=== PATIENT | female | born 1960 | race Caucasian/White ===

== ENCOUNTER → 2016-04-30 | Outpatient (CLI) | payer BC ==
[~2016-04-30] MED LIST: ACET-1138 PO; ACET1TAB84 PO; ASPEC81 PO; BIOF500C2 PO; CLB200 PO; DICL-201 PO; FEXO1TAB49 PO; HYDR-5688 PO; ONDA8TAB6 PO; OXYSR10 PO; RXC5 PO
== END | disposition home or self-care (01) ==
LOC: C.LAB 11:42
PROVIDERS: ATTEND Orthopaedic Surgery Sports Medicine
DX: Z01.818 Encounter for other preprocedural examination (principal)

== ENCOUNTER 2016-06-03 07:53 | Inpatient (IN) | payer BC ==
[2016-04-24 15:04] VITALS: BMI 40.0
--- NOTE | 2016-04-24 15:32 | PAT Medication Instructions ---
Service Date Apr 24, 2016. Current Home Medication List Acetaminophen (Tylenol Arthritis Ext Rel), 650 MG PO Q8H PRN for Pain Bioflavonoid Products (Vitamin C), 1 TAB PO QAM Diclofenac (Voltaren), 75 MG PO BID Fexofenadine Hcl (Anat Allergy), 1 TAB PO QAM Hydrocodone/Acetaminophen 5MG/325MG ([place] 5MG/325MG), 1 TABLET PO QID PRN for Pain Medication Instructions For Your Scheduled Surgery - Check with surgeon for instructions: Diclofenac (Voltaren), 75 MG PO BID - Hold the following medications the morning of surgery: Fexofenadine Hcl (Anat Allergy), 1 TAB PO QAM Bioflavonoid Products (Vitamin C), 1 TAB PO QAM - Take the following medications the morning of surgery with a sip of water: Acetaminophen (Tylenol Arthritis Ext Rel), 650 MG PO Q8H PRN for Pain Hydrocodone/Acetaminophen 5MG/325MG ([place] 5MG/325MG), 1 TABLET PO QID PRN for Pain (okay to take up to 4 hours prior to surgery if needed) - Take the following medications as scheduled the night before surgery: Acetaminophen (Tylenol Arthritis Ext Rel), 650 MG PO Q8H PRN for Pain Hydrocodone/Acetaminophen 5MG/325MG ([place] 5MG/325MG), 1 TABLET PO QID PRN for Pain If you have any questions please call us at [phone] (Kirstin Vicente PA-C) or [phone] or [phone]
--- NOTE | 2016-04-24 16:17 | DIAGNOSTIC IMAGING REPORT ---
CHEST 2 VIEWS ROUTINE HISTORY: Preop. COMPARISON: None. FINDINGS: The lungs are clear. Cardiac silhouette is normal in size. No pleural effusions. No pneumothorax. Cholecystectomy clips. IMPRESSION: No acute process. Electronically signed by: Rahul Do M.D. 04/24/2016 4:16 PM Dictated Date/Time: 04/24/2016 4:15 PM
[2016-04-24 16:19] LABS: BASO % 0.3 %; BASO ABS # 0.03 K/uL (0-0.2); COMPLETE YES; EOS % 1.4 %; HEMATOCRIT 42.3 % (37-47); IG% 0.2 %; LYMPH % 25.6 %; MEAN CELL VOLUME 91.6 fL (80-100); MEAN CORPUSCULAR HGB CONC 33.8 g/dl (32-36); MONO % 5.1 %; NEUT % 67.4 %; PLATELET COUNT 221 K/uL (130-400); RED BLOOD COUNT 4.62 M/uL (4.2-5.4); WHITE BLOOD COUNT 8.58 K/uL (4.8-10.8)
[2016-04-24 16:20] LABS: URINE APPEARANCE CLEAR (CLEAR); URINE BILIRUBIN NEG (NEG); URINE COLOR YELLOW; URINE EPITHELIAL CELL AUTO >30 /lpf (0-5); URINE NITRITE NEG (NEG); URINE SPECIFIC GRAVITY 1.023 (1.000-1.030); UROBILINOGEN NEG (NEG); ZZUR CULT IF INDIC CLEAN CATCH YES
[2016-04-24 16:21] LABS: MANUAL MICROSCOPIC REQUIRED? NO; REVIEW REQ? NO
[2016-04-24 16:27] LABS: PROTHROMBIN TIME (PATIENT) 10.7 SECONDS (9.0-12.0)
[2016-04-24 16:54] LABS: BUN/CREATININE RATIO 25.2 (10-20); CALCIUM 9.6 mg/dl (8.5-10.1); CREATININE 0.87 mg/dl (0.60-1.20); POTASSIUM 4.3 mmol/L (3.5-5.1)
[2016-04-25 06:21] LABS: ESTIMATED AVERAGE GLUCOSE 126 mg/dl; HA1C FLAG Normal (Normal)
--- NOTE | 2016-06-02 20:13 | HISTORY & PHYSICAL EXAMINATION ---
DATE OF ADMISSION: 06/03/2016 CHIEF COMPLAINT: Right knee pain. HISTORY OF PRESENT ILLNESS: This is a 56-year-old female patient of Dr. Nicholas'yanet complaining of chronic right knee pain, longstanding, now progressively getting worse. The patient has been diagnosed with end-stage osteoarthritis per clinical and radiographic exams. The patient has failed conservative treatment including anti-inflammatories, narcotic medications and intraarticular injections as well as the use of brace and cane in the past. The patient has increased pain with weightbearing activities and her pain does interfere with her activities of daily living. PAST MEDICAL HISTORY: Sleep apnea, osteoarthritis, acid reflux. SOCIAL HISTORY: Nonsmoker, nondrinker. PAST SURGICAL HISTORY: Cholecystectomy. FAMILY HISTORY: Noncontributory. REVIEW OF SYSTEMS: The patient complains of chronic right knee pain; otherwise denies any shortness of breath, chest pain, nausea, vomiting or any other joint complaints. MEDICATIONS: Tylenol as needed, Voltaren 75 mg twice daily, vitamin C 125 mg daily, Vicodin as needed, Anat 180 mg daily. ALLERGIES: No known drug allergies. SHE IS ALLERGIC TO POLLEN. PHYSICAL EXAMINATION: GENERAL: Well-developed, well-nourished 56-year-old female in no acute distress. She is alert and oriented x3 and pleasant. HEENT: Normocephalic, atraumatic. Extraocular motions are intact. Pupils are equal and reactive to light. HEART: Regular rate and rhythm. No murmurs are appreciated. LUNGS: Clear. ABDOMEN: Soft, nontender, bowel sounds present. EXTREMITIES: Right knee reveals limited range of motion of 0-125 degrees. She has 4/5 strength. The patient has crepitation with range of motion with a mild effusion. She has medial joint line tenderness. NEUROLOGIC: Neurovascularly, she is intact in her right lower extremity. DIAGNOSES: Right knee end-stage osteoarthritis, sleep apnea, acid reflux and osteoarthritis. PLAN: The patient was advised of her diagnosis. Indications, risks, benefits, and postop course have all been reviewed. The patient wishes to proceed with a right total knee arthroplasty. Necessary consent forms, preoperative testing and clearances will be obtained.
[~2016-06-03] VITALS: Ht 157.5 cm; Wt 99.4 kg
[2016-06-03] VITALS (10 sets, daily range): BP systolic 116–180; BP diastolic 67–90; PULSE 74–96; TEMP 36.6–37; O2SAT 93–100; Ht 157.5 cm; Wt 99.4 kg
[2016-06-03] MEDS: TRANEXAMIC ACID INJ 1,000 MG in SODIUM CHLORIDE 0.9% 100ML 100 ML IV SCH ×2 (06:30→09:54)
[~2016-06-03 07:53] MED LIST changes: -ACET-1138 PO; +ACETAMINOPHEN 500 MG TAB PO SCH; -ASPEC81 PO; +BUPIVACAINE 0.5 % 5 MG/1 ML PF 10ML VIAL ONE; +CEFAZOLIN 2000 MG/60 ML D5W 60 ML IV SCH; -CLB200 PO; +CeleBREX 200 MG CAP PO SCH; +DEXAMETHASONE 4 MG TAB PO SCH; +FAMOTIDINE 20 MG TAB PO SCH; +GABAPENTIN 300 MG CAP PO SCH; +LACTATED RINGER'S 1000ML 1,000 ML IV SCH; +LACTATED RINGER'S 1000ML IV SCH; +LACTATED RINGER'S 500 ML IV SCH; +METOCLOPRAMIDE HCL 10 MG TAB PO SCH; -ONDA8TAB6 PO; -OXYSR10 PO; +ROPIVACAINE 5MG/ML 30 ML 150 MG, BUPIVACAINE/EPINEPHR 0.5% MPF 30 ML, KETOROLAC TROMETH... INFIL SCH; -RXC5 PO
[2016-06-03] MEDS ORDERED: FENTANYL CITRATE INJ 50 MCG/1 ML 2 ML VIAL ONE (08:16)
[2016-06-03] MEDS ORDERED: MIDAZOLAM HCL 1 MG/ML 2ML VIAL ONE ×2 (08:16)
--- NOTE | 2016-06-03 08:51 | History & Physical Bridge Note ---
H&P Re-Evaluation Bridge Note: I have examined the patient, reviewed the History & Physical and in the interval since the performance of the History & Physical I have noted the following changes of clinical significance: No changes noted
[2016-06-03] MEDS ORDERED: ATROPINE SULFATE 0.1 MG/ML 5ML SYR IV PRN (09:15)
[2016-06-03] MEDS ORDERED: EpHEDrine SULFATE INJ 50 MG/ML AMP IV PRN (09:15)
[2016-06-03] MEDS ORDERED: FENTANYL CITRATE INJ 50 MCG/1 ML 2 ML VIAL IV PRN (09:15)
[2016-06-03] MEDS ORDERED: ONDANSETRON INJ 2 MG/ML 2 ML VIAL IV PRN ×2 (09:15→12:00)
[2016-06-03] MEDS ORDERED: ORTHO JOINT ANESTHETIC ONE (09:39)
[2016-06-03] MEDS ORDERED: BACITRACIN 50000 UNIT VIAL ONE (09:39)
[2016-06-03] MEDS ORDERED: POVIDONE-IODINE OP SOLN 30 ML BTL ONE (09:39)
[2016-06-03] MEDS ORDERED: PROPOFOL IV EMULSION 10 MG/ML 20 ML VIAL IV ONE (10:44)
[2016-06-03] MEDS ORDERED: ONDANSETRON INJ 2 MG/ML 2 ML VIAL ONE (10:44)
--- NOTE | 2016-06-03 11:44 | [facility] Operative Report ---
Operative Report Operative Date Jun 03, 2016. Pre-Operative Diagnosis Right Knee Degenerative Joint Disease Post-Operative Diagnosis same Procedure(s) Performed right tka Surgeon Dr. Nicholas Flight Coordinator Surgeon(s) David Myers PA-C Estimated Blood Loss 5 ml Findings grade 4 anteromedial compartment,grade 3 patella trochlear groove Specimens A. Right Knee bone and Tissue Drains 2 hemovac Anesthesia spinal regional block orthomix Complication(s) None Disposition Recovery Room / PACU Indications failed conservative care advanced djd oa I attest to the content of the Intraoperative Record and any orders documented therein. Any exceptions are noted below.
[2016-06-03] MEDS ORDERED: TRAMADOL HCL 50 MG TAB PO PRN (12:00)
[2016-06-03] MEDS ORDERED: MAGNESIUM HYDROXIDE SUSP 30 ML UDC PO PRN (12:00)
[2016-06-03] MEDS ORDERED: SOD PHOSPHATE/SOD BIPHOSPHATE ENEMA 132 ML BTL PR PRN (12:00)
[2016-06-03] MEDS ORDERED: BISACODYL 10 MG SUPP PR PRN (12:00)
[2016-06-03] MEDS ORDERED: MoRPHine SULFATE 2 MG/ML CARP IV PRN (12:00)
[2016-06-03] MEDS ORDERED: ZOLPIDEM TARTRATE 5 MG TAB PO PRN (12:00)
--- NOTE | 2016-06-03 12:36 | DIAGNOSTIC IMAGING REPORT ---
RIGHT KNEE 1 OR 2 VIEWS ROUTINE CLINICAL HISTORY: Right knee degenerative joint disease. COMPARISON: None FINDINGS: Alignment of the total right knee arthroplasty is anatomic. There is no periprosthetic fracture or unexpected radiopaque foreign body. Drains and skin dagoberto are present. IMPRESSION: Expected findings following total right knee arthroplasty. Electronically signed by: Jose Vicente M.D. 06/03/2016 12:34 PM Dictated Date/Time: 06/03/2016 12:34 PM
[2016-06-03] MEDS ORDERED: MoRPHine SULFATE 4 MG/ML 1 ML CARP\\VIAL IV PRN (13:15)
--- NOTE | 2016-06-03 13:34 | Anesthesiology Progress Note ---
Anesthesia Post Op Note Date & Time Jun 03, 2016 at 13:33 Vital Signs Pain Intensity: 0 Vital Signs Past 12 Hours Date Time Temp Pulse Resp B/P Pulse Ox O2 Delivery O2 Flow Rate FiO2 06/03/16 13:05 76 16 129/63 98 Nasal Cannula 2 06/03/16 12:55 76 16 137/64 98 Nasal Cannula 2 06/03/16 12:45 36.5 86 16 143/67 98 Nasal Cannula 2 06/03/16 12:35 77 18 135/71 98 Nasal Cannula 2 06/03/16 12:25 90 18 141/69 99 Nasal Cannula 2 06/03/16 12:15 89 16 130/68 99 Nasal Cannula 2 06/03/16 12:05 91 17 132/68 96 Nasal Cannula 2 06/03/16 11:59 36 103 16 142/59 96 Nasal Cannula 2 06/03/16 08:12 36.9 92 20 180/90 95 Room Air Notes Mental Status: alert / awake / arousable, participated in evaluation Pt Amnestic to Procedure: Yes Nausea / Vomiting: adequately controlled Pain: adequately controlled Airway Patency, RR, SpO2: stable & adequate BP & HR: stable & adequate Hydration State: stable & adequate Neuraxial Anesthesia: was administered, sensory block is resolving Anesthetic Complications: no major complications apparent
[2016-06-03] MEDS: D5W AND 1/2NSS + 20MEQ KCL 1,000 ML IV SCH ×2 (14:02→23:47)
--- NOTE | 2016-06-03 14:43 | Medical Consult ---
Consultation Date of Consultation: Jun 03, 2016. Attending Physician: Bart Nicholas M.D. Reason for Consultation: Medical management History of Present Illness 56 y/o F s/p R TKA earlier today. She is currently eating lunch and having no issues. No pain related to her surgery. No chest pain or SOB. Pt denies fever , abd pain, n/v/c/d, LE pain or swelling, urinary urgency or frequency. ROS as noted above, otherwise neg. Pt states she was never dx with sleep apnea, but does snore and wake frequently. Pt states she has not been able to walk much for several months due to her knee pain. Past Medical/Surgical History OA GERD Social History Smoking Status: Never Smoker Alcohol Use: none Drug Use: none Allergies Coded Allergies: No Known Allergies (Verified , 06/03/16) Current Inpatient Medications Current Inpatient Medications Medications (Trade) Dose Ordered Sig/Kendrick Route Start Time Stop Time Status Last Admin Dose Admin Cefazolin Sodium (Ancef 2000mg/60 ml D5W) 60 ml @ 100 mls/hr PREOP IV 06/03/16 06:00 06/03/16 18:00 06/03/16 10:10 100 MLS/HR Acetaminophen (Tylenol Tab) 1,000 mg PREOP PO 06/03/16 06:00 06/03/16 18:00 06/03/16 08:49 1,000 MG Celecoxib (CeleBREX CAP) 200 mg PREOP PO 06/03/16 06:00 06/03/16 18:00 06/03/16 08:49 200 MG Dexamethasone (Decadron Tab) 8 mg PREOP PO 06/03/16 06:00 06/03/16 18:00 06/03/16 08:50 8 MG Famotidine (Pepcid Tab) 20 mg PREOP PO 06/03/16 06:00 06/03/16 18:00 06/03/16 08:49 20 MG Gabapentin (Neurontin Cap) 600 mg PREOP PO 06/03/16 06:00 06/03/16 18:00 06/03/16 08:49 600 MG Metoclopramide HCl 10 mg 10 mg PREOP PO 06/03/16 06:00 06/03/16 18:00 06/03/16 08:50 10 MG Tranexamic Acid 1000 mg/Sodium Chloride 110 ml @ 660 mls/hr TODAY@06,0630 IV 06/03/16 06:00 06/03/16 18:00 06/03/16 09:54 660 MLS/HR Ropivacaine/ Bupivacaine HCl/ Epinephrine Bitart/Ketorolac Tromethamine/ Dexamethasone Sodium Phosphate/ Ketamine HCl/ Clonidine/Sodium Chloride/Empty Bag (Naropin Inj 5MG/ Ml 30ML/ Sensorcaine/ Epinephrine 0.5% Mpf 1:200,000/ Toradol Inj/ Decadron Inj/ Ketalar Steri-Vial I... 93.2 ml @ 0 mls/hr TODAY@06 INFIL 06/03/16 06:00 06/03/16 18:00 Fexofenadine HCl 180 mg 180 mg QAM PO 06/04/16 09:00 07/04/16 08:59 Potassium Chloride/Dextrose/ Sod Cl 1,000 ml @ 100 mls/hr Q10H IV 06/03/16 14:00 06/04/16 11:59 06/03/16 14:02 100 MLS/HR Cefazolin Sodium/ Dextrose (Ancef Iv/D5 50ml) 60 ml @ 100 mls/hr Q8H IV 06/03/16 18:00 06/04/16 02:35 Celecoxib (CeleBREX CAP) 200 mg BID PO 06/03/16 21:00 07/03/16 20:59 Oxycodone HCl (Roxicodone Immediate Rel Tab) 1 TABLET FOR PAIN RATING... Q4H PRN PO 06/03/16 12:00 06/17/16 11:59 Oxycodone HCl (Oxycontin Tab) 10 mg Q12 PO 06/03/16 21:00 06/17/16 20:59 Morphine Sulfate (MoRPHine SULFATE INJ) 2 mg Q2H PRN IV 06/03/16 12:00 06/17/16 11:59 Acetaminophen (Tylenol Tab) 1,000 mg Q8H PO 06/03/16 14:00 07/03/16 13:59 Magnesium Hydroxide (Milk Of Magnesia Susp) 30 ml Q6H PRN PO 06/03/16 12:00 07/03/16 11:59 Bisacodyl (Dulcolax Supp) 10 mg DAILY PRN NE 06/03/16 12:00 07/03/16 11:59 Sodium Biphosphate/ Sodium Phosphate (Fleet Enema) 132 ml DAILY PRN NE 06/03/16 12:00 07/03/16 11:59 Docusate Sodium (coLACE CAP) 100 mg BID PO 06/03/16 21:00 07/03/16 20:59 Diphenhydramine HCl (Benadryl Cap) 25 mg Q8H PRN PO 06/03/16 12:00 07/03/16 11:59 Zolpidem Tartrate (Ambien Tab) 5 mg HSZ PRN PO 06/03/16 12:00 07/03/16 11:59 Multivitamins (Multivitamin Tab) 1 tab QAM PO 06/04/16 09:00 07/04/16 08:59 Ondansetron HCl (Zofran Inj) 4 mg Q6H PRN IV 06/03/16 12:00 07/03/16 11:59 Pantoprazole Sodium (Protonix Tab) 40 mg QAM PO 06/04/16 09:00 07/04/16 08:59 Tramadol HCl (Ultram Tab) 1 tablet for pain rating... Q4H PRN PO 06/03/16 12:00 07/03/16 11:59 Aspirin (Ecotrin Tab) 81 mg BID PO 06/03/16 21:00 07/03/16 20:59 Morphine Sulfate (MoRPHine SULFATE INJ) 4 mg Q2H PRN IV 06/03/16 13:15 06/17/16 13:14 Physical Exam Date Time Temp Pulse Resp B/P Pulse Ox O2 Delivery O2 Flow Rate FiO2 06/03/16 14:15 74 16 133/89 100 Nasal Cannula 2.0 06/03/16 14:13 36.7 81 16 127/78 98 Nasal Cannula 2.0 06/03/16 13:50 87 16 122/72 98 Nasal Cannula 2.0 06/03/16 13:42 99 Nasal Cannula 2.0 06/03/16 13:41 99 Nasal Cannula 2.0 06/03/16 13:38 36.6 86 16 140/85 99 Nasal Cannula 2.0 06/03/16 13:05 76 16 129/63 98 Nasal Cannula 2 06/03/16 12:55 76 16 137/64 98 Nasal Cannula 2 06/03/16 12:45 36.5 86 16 143/67 98 Nasal Cannula 2 06/03/16 12:35 77 18 135/71 98 Nasal Cannula 2 06/03/16 12:25 90 18 141/69 99 Nasal Cannula 2 06/03/16 12:15 89 16 130/68 99 Nasal Cannula 2 06/03/16 12:05 91 17 132/68 96 Nasal Cannula 2 06/03/16 11:59 36 103 16 142/59 96 Nasal Cannula 2 06/03/16 08:12 36.9 92 20 180/90 95 Room Air General Appearance: WD/WN, no apparent distress Neck: supple Respiratory/Chest: lungs clear, normal breath sounds, no respiratory distress Cardiovascular: regular rate, rhythm, no edema Abdomen/GI: non tender, soft Extremities/Musculoskelatal: no calf tenderness, no pedal edema Neurologic/Psych: alert, normal mood/affect Skin: normal color, warm/dry Assessment & Plan 56 y/o F s/p R TKA on 06/03 R TKA: as per ortho GERD: continue home meds Elevated A1c 6.0: pt states she has not been informed of this prior She is uncertain if her pre-op labs were fasting, but was not aware that they needed to be BS on pre-op labs was 126, which is more concerning if this was fasting Advised that she should discuss further with PCP, start working on diet now and add in exercise as her post-op status allows ??DEIRDRE: No formal dx, but listed in H&P, + for snoring and frequent awakening Will need formal sleep study as outpt
[2016-06-03] MEDS: ACETAMINOPHEN 500 MG TAB PO SCH ×2 (15:21→21:42)
--- NOTE | 2016-06-03 16:57 | OPERATIVE REPORT ---
DATE OF OPERATION: 06/03/2016 INDICATION FOR PROCEDURE: The patient is a 56-year-old female with progressive pain and disability with regard to her right knee. She had known osteoarthritis. She had extensive management including steroid injection, viscosupplementation injections. She has had progressive osteoarthritis to the point now where x-rays demonstrate that she is [id number] in the medial compartment on flexion views and she has moderate patellofemoral DJD. PREOPERATIVE DIAGNOSIS: End-stage osteoarthritis, right knee. POSTOPERATIVE DIAGNOSIS: Same. PROCEDURE: Right total knee arthroplasty. SURGEON: Dr. Nicholas. TESTER/LIFT TRUCKER: ASPEN Irwin ANESTHESIA: Spinal, IV sedation, regional block and ortho mix. OPERATIVE PROCEDURE: The patient taken to the operating room, anesthetized under spinal anesthetic. She had a block placed. She has had a pneumatic tourniquet placed about her right upper thigh. Her right lower extremity was prepped and draped in a sterile fashion. Exam demonstrates she had 0 through 125 degrees range of motion. She had no instability. She had patellofemoral crepitation. She had moderate obese knee. The right lower extremity was prepped and draped with ChloraPrep. The leg was elevated, exsanguinated with an Esmarch bandage and the pneumatic tourniquet was raised to 350 mmHg because of her obesity. The anterior incision was made longitudinally across the right knee, skin was incised sharply. Subcutaneous flaps were elevated. Incision was made through the medial retinaculum and extended up in the mid third of the quadriceps tendon and extended down to the medial tibial tubercle. Intraarticular findings demonstrated she was [id number] in the medial compartment, there was more anteromedial arthritis where she has had grade 4 changes on the tibial plateau and femur. She also had grade 3 large lesion in the central trochlear groove and on the patella was grade 3 wear as well. She has tricompartmental osteophytes. To expose the knee, I excised the infrapatellar fat pad, the fat pad over the anterior femur, released lateral synovial bands and excised some of the inflamed synovium tissue. The menisci were resected, crucial ligaments were resected. I used the Cisneros and Nephew Journey II total knee arthroplasty system using [place] MRI templating. Femur sized for a 5 and tibia for a 3. The custom cutting block was placed on the femur. Distal femoral cut was made. Then the 5-1 cutting block for a 5 femur was placed. The anterior, posterior and chamfer cuts were made. The knee was extended. A subperiosteal peel lateral release was performed around the patella. The patella width was measured and width was reproduced using a freehand cut technique and the drill holes were made for the patellar component. The excess lateral facet was beveled off to prevent any impingement. The tibia was then exposed and subluxed and the custom tibial cutting block was placed and pinned in position and the proximal tibial cut was made. Lamina director marketing communications was used to help balance the ligaments. We did a medial and posteromedial releases. We went ahead and placed the [address], externally rotated in line with the tibial tubercle, pinned it in position. The punch for the stem was used. Then, the 5 femoral trial was inserted, centered and the notch cutting devices were used. A collet was placed and assessed the ligamentous balance again. She is low unbalanced, too much tightness posterior medial, so I put a laminar director marketing communications in between the components and did a minor pie crusting of the MCL till we had a better ligamentous balance and then placed an 11 poly insert and the ligaments were completely balanced in full range of motion and the patella had just some very slight lateral translation, so I did a minor lateral release of the upper lateral retinaculum to the mid retinaculum area releasing some of the IT band fibers and then the patella tracked completely centrally after that. The trials were removed. The anesthetic Orthomix cocktail was injected per protocol. The knee was copiously irrigated with pulsatile lavage antibiotic solution and bacitracin. Final components were cemented with Simplex cement. Final components were the 5 Oxinium posterior stabilized right Cisneros \T\ Nephew Journey femur component and the size 3 tibial component primary base plate. The 11 mm posterior stabilized poly insert and the 32 mm patella. While the cement cured, we did the Betadine soak per protocol. The knee joint was then again copiously irrigated with pulsatile lavage antibiotic solution and bacitracin. Two drains were brought out laterally. Quadriceps tendon and medial retinaculum were closed with interrupted [id number] #1 Vicryl sutures. The knee was taken through full range of motion and repair was secure. The subcutaneous tissues were injected with more Orthomix. The subcutaneous tissue was closed with interrupted 2-0 Vicryl, skin closed with dagoberto. Sterile dressing was applied and the patient tolerated the procedure well. ASPEN Irwin was my assistant professor of psychology. He functioned as assistant professor of psychology for the entire procedure. He assisted in patient positioning, assisted in soft tissue retraction, instrument management during the reconstruction and performed the fascial, subcutaneous and skin closure. He will participate in postoperative care of the patient. I attest to the content of the Intraoperative Record and any orders documented therein. Any exceptio ns are noted below.
[2016-06-03] MEDS: OXYCODONE HCL IR 5 MG TAB (IMMEDIATE RELEASE) PO PRN (17:21)
[2016-06-03] MEDS: CEFAZOLIN IV 2,000 MG in DEXTROSE 5% 50ML 50 ML IV SCH (17:24)
[2016-06-03] MEDS: OXYCODONE HCL 10 MG TABCR (OXYCONTIN) PO SCH (21:40)
[2016-06-03] MEDS: ASPIRIN 81 MG ECTAB PO SCH (21:41)
[2016-06-03] MEDS: DOCUSATE SODIUM 100 MG CAP PO SCH (21:41)
[2016-06-03] MEDS: CeleBREX 200 MG CAP PO SCH (21:42)
[2016-06-04] MEDS: CEFAZOLIN IV 2,000 MG in DEXTROSE 5% 50ML 50 ML IV SCH (01:33)
[2016-06-04 03:13] VITALS: BP 105/65; PULSE 68; TEMP 36.6; O2SAT 98
[2016-06-04] MEDS: ACETAMINOPHEN 500 MG TAB PO SCH ×3 (05:51→20:37)
[2016-06-04 06:19] LABS: HEMATOCRIT 37.2 % (37-47); MEAN CELL VOLUME 92.1 fL (80-100); MEAN CORPUSCULAR HEMOGLOBIN 30.7 pg (25-34); MEAN CORPUSCULAR HGB CONC 33.3 g/dl (32-36); MEAN PLATELET VOLUME 11.7 fL (7.4-10.4); PLATELET COUNT 272 K/uL (130-400); RED BLOOD COUNT 4.04 M/uL (4.2-5.4)
[2016-06-04 06:47] VITALS: BP 117/65; PULSE 70; TEMP 36.6; O2SAT 97
[2016-06-04 06:53] LABS: CREATININE 1.1 mg/dl (0.60-1.20); POTASSIUM 4.3 mmol/L (3.5-5.1)
--- NOTE | 2016-06-04 08:15 | Orthopedic Progress Note ---
Orthopedic Progress Note Date of Service Jun 04, 2016. Subjective Post OP Day: 1 Reports: feeling well, pain controlled w PO medications, Denies: SOB, calf pain , chest pain, complaints, light headedness, nausea / vomiting Objective calves soft nontender, N/V intact, capillary refill less than 2 sec., dressing C /D/I, A&O x3, toes mobile Date Time Temp Pulse Resp B/P Pulse Ox O2 Delivery O2 Flow Rate FiO2 06/04/16 06:47 36.6 70 16 117/65 97 Room Air 06/04/16 03:13 36.6 68 16 105/65 98 Room Air 06/03/16 22:54 37.0 83 16 116/67 96 Room Air 06/03/16 20:05 Room Air 06/03/16 19:19 36.7 95 17 133/73 93 Room Air 06/03/16 16:30 36.8 96 17 146/85 96 Room Air 06/03/16 15:22 76 14 124/74 97 Nasal Cannula 2.0 06/03/16 14:51 Room Air 06/03/16 14:15 74 16 133/89 100 Nasal Cannula 2.0 06/03/16 14:13 36.7 81 16 127/78 98 Nasal Cannula 2.0 06/03/16 13:50 87 16 122/72 98 Nasal Cannula 2.0 06/03/16 13:42 99 Nasal Cannula 2.0 06/03/16 13:41 99 Nasal Cannula 2.0 06/03/16 13:38 36.6 86 16 140/85 99 Nasal Cannula 2.0 06/03/16 13:05 76 16 129/63 98 Nasal Cannula 2 06/03/16 12:55 76 16 137/64 98 Nasal Cannula 2 06/03/16 12:45 36.5 86 16 143/67 98 Nasal Cannula 2 06/03/16 12:35 77 18 135/71 98 Nasal Cannula 2 06/03/16 12:25 90 18 141/69 99 Nasal Cannula 2 06/03/16 12:15 89 16 130/68 99 Nasal Cannula 2 06/03/16 12:05 91 17 132/68 96 Nasal Cannula 2 06/03/16 11:59 36 103 16 142/59 96 Nasal Cannula 2 Laboratory Results 24 Hours: Test 06/04/16 05:30 Hematocrit 37.2 % Hemoglobin 12.4 g/dL Assessment & Plan Assessment: POD #1, Right TKA Plan: PT/ OT DVT proph- ASA D/C planning- Home w OPPT Appreciate medicine input Inhouse Planning Pain Management: Celebrex, Oxycontin, Morphine, PO Tylenol, Oxy IR DVT Prophylaxis: TEDs, SCDs, ASA Discharge Planning Discharge Planning: home with oppt Pain Management: Celebrex, Oxycontin, PO Tylenol, Oxy IR DVT Prophylaxis: TEDs, ASA Therapy: Physical Therapy, Occupational Therapy
[2016-06-04] MEDS: FEXOFENADINE HCL 180 MG TAB PO SCH (08:35)
[2016-06-04] MEDS: CeleBREX 200 MG CAP PO SCH ×2 (08:36→20:36)
[2016-06-04] MEDS: ASPIRIN 81 MG ECTAB PO SCH ×2 (08:36→20:36)
[2016-06-04] MEDS: DOCUSATE SODIUM 100 MG CAP PO SCH ×2 (08:36→20:36)
[2016-06-04] MEDS: PANTOprazole SOD 40 MG TAB PO SCH (08:37)
[2016-06-04] MEDS: OXYCODONE HCL 10 MG TABCR (OXYCONTIN) PO SCH ×2 (08:37→20:35)
[2016-06-04] MEDS: MULTIVITAMIN TAB PO SCH (08:37)
[2016-06-04] MEDS: D5W AND 1/2NSS + 20MEQ KCL 1,000 ML IV SCH (08:39)
[2016-06-04] MEDS ORDERED: BIOFLAVONOID PRODUCTS PO SCH (09:00)
[2016-06-04 10:30] VITALS: BP 123/71
[2016-06-04 11:04] VITALS: BP 130/64; PULSE 75; TEMP 36.6; O2SAT 97
[2016-06-04] MEDS: OXYCODONE HCL IR 5 MG TAB (IMMEDIATE RELEASE) PO PRN ×2 (13:53→23:55)
[2016-06-04 14:54] VITALS: BP 130/70; PULSE 66; TEMP 36.6; O2SAT 99
[2016-06-05 00:02] VITALS: BP 151/76; PULSE 67; TEMP 36.6; O2SAT 96
[2016-06-05] MEDS: ACETAMINOPHEN 500 MG TAB PO SCH ×3 (05:51→20:45)
[2016-06-05] MEDS: OXYCODONE HCL IR 5 MG TAB (IMMEDIATE RELEASE) PO PRN (05:51)
[2016-06-05 06:03] VITALS: BP 130/83; PULSE 63; TEMP 36.8; O2SAT 97
[2016-06-05 06:30] LABS: MEAN CORPUSCULAR HEMOGLOBIN 30.5 pg (25-34); MEAN CORPUSCULAR HGB CONC 32.5 g/dl (32-36); MEAN PLATELET VOLUME 12.1 fL (7.4-10.4); PLATELET COUNT 225 K/uL (130-400); RED BLOOD COUNT 3.83 M/uL (4.2-5.4); WHITE BLOOD COUNT 12.12 K/uL (4.8-10.8)
[2016-06-05 07:16] LABS: BUN/CREATININE RATIO 28.3 (10-20); CALCIUM 8.7 mg/dl (8.5-10.1); CREATININE 0.94 mg/dl (0.60-1.20); POTASSIUM 4.3 mmol/L (3.5-5.1)
[2016-06-05] MEDS ORDERED: KETOROLAC TROMETHAMINE 30 MG/ML VIAL IV PRN (07:30)
[2016-06-05] MEDS ORDERED: KETOROLAC TROMETHAMINE 30 MG/ML VIAL ONE (07:33)
[2016-06-05] MEDS: ASPIRIN 81 MG ECTAB PO SCH ×2 (07:34→20:44)
[2016-06-05] MEDS: OXYCODONE HCL 10 MG TABCR (OXYCONTIN) PO SCH ×2 (07:34→20:44)
[2016-06-05] MEDS: DOCUSATE SODIUM 100 MG CAP PO SCH ×2 (07:34→20:44)
[2016-06-05] MEDS: FEXOFENADINE HCL 180 MG TAB PO SCH (07:34)
[2016-06-05] MEDS: PANTOprazole SOD 40 MG TAB PO SCH (07:35)
[2016-06-05] MEDS: MULTIVITAMIN TAB PO SCH (07:35)
--- NOTE | 2016-06-05 08:09 | Orthopedic Progress Note ---
Orthopedic Progress Note Date of Service Jun 05, 2016. Subjective Post OP Day: 2 Denies: SOB, calf pain, chest pain, light headedness, nausea / vomiting Additional Notes: Main issue is pain, toradol added Little PT Objective calves soft nontender, N/V intact, capillary refill less than 2 sec., dressing C /D/I, A&O x3, toes mobile silverlon in tact Date Time Temp Pulse Resp B/P Pulse Ox O2 Delivery O2 Flow Rate FiO2 06/05/16 06:03 36.8 63 16 130/83 97 Room Air 06/05/16 00:02 36.6 67 16 151/76 96 Room Air 06/04/16 23:55 Room Air 06/04/16 15:15 Room Air 06/04/16 14:54 36.6 66 17 130/70 99 Room Air 06/04/16 11:04 36.6 75 19 130/64 97 Room Air 06/04/16 08:23 Room Air Laboratory Results 24 Hours: Test 06/05/16 05:51 Hematocrit 36.0 % Hemoglobin 11.7 g/dL Assessment & Plan Assessment: POD #2, Right TKA Plan: PT/ OT DVT proph- ASA D/C planning- Home w OPPT this weekend Appreciate medicine input Inhouse Planning Pain Management: Celebrex, Oxycontin, Morphine, PO Tylenol, Oxy IR DVT Prophylaxis: TEDs, SCDs, ASA Discharge Planning Discharge Planning: home with oppt Pain Management: Celebrex, Oxycontin, PO Tylenol, Oxy IR DVT Prophylaxis: TEDs, ASA Therapy: Physical Therapy, Occupational Therapy
[2016-06-05] MEDS: CeleBREX 200 MG CAP PO SCH ×2 (08:52→20:44)
[2016-06-05 09:52] VITALS: BP 144/97; PULSE 73; O2SAT 98
[2016-06-05 15:36] VITALS: BP 143/81; PULSE 70; TEMP 36.7; O2SAT 97
[2016-06-06 00:14] VITALS: BP 124/74; PULSE 71; TEMP 36.7; O2SAT 97
[2016-06-06] MEDS: OXYCODONE HCL IR 5 MG TAB (IMMEDIATE RELEASE) PO PRN ×2 (04:35→11:10)
[2016-06-06] MEDS: ACETAMINOPHEN 500 MG TAB PO SCH (04:36)
[2016-06-06 07:32] VITALS: BP 150/85; PULSE 70; TEMP 36.5; O2SAT 96
--- NOTE | 2016-06-06 07:58 | Orthopedic Progress Note ---
Orthopedic Progress Note Date of Service Jun 06, 2016. Subjective Post OP Day: 3 Reports: feeling well, pain controlled w PO medications, Denies: SOB, calf pain , chest pain, complaints, light headedness, nausea / vomiting Additional Notes: Pain controlled better and feeling well today. Objective calves soft nontender, N/V intact, capillary refill less than 2 sec., dressing C /D/I, A&O x3, toes mobile Silverlon in tact. Date Time Temp Pulse Resp B/P Pulse Ox O2 Delivery O2 Flow Rate FiO2 06/06/16 07:32 36.5 70 18 150/85 96 Room Air 06/06/16 07:10 Room Air 06/06/16 00:35 Room Air 06/06/16 00:14 36.7 71 14 124/74 97 Room Air 06/05/16 16:00 Room Air 06/05/16 15:36 36.7 70 18 143/81 97 Room Air 06/05/16 09:52 73 98 Assessment & Plan Assessment: POD #3, Right TKA Plan: PT/ OT DVT proph- ASA D/C planning- Home w OPPT today Appreciate medicine input Inhouse Planning Pain Management: Celebrex, Oxycontin, Morphine, PO Tylenol, Oxy IR DVT Prophylaxis: TEDs, SCDs, ASA Discharge Planning Discharge Planning: home with oppt Pain Management: Celebrex, Oxycontin, PO Tylenol, Oxy IR DVT Prophylaxis: TEDs, ASA Therapy: Physical Therapy, Occupational Therapy
[2016-06-06] MEDS ORDERED: CLB200 PO (08:01)
[2016-06-06] MEDS ORDERED: RXC5 PO (08:01)
[2016-06-06] MEDS ORDERED: OXYSR10 PO (08:01)
[2016-06-06] MEDS ORDERED: ACET-1138 PO (08:01)
[2016-06-06] MEDS ORDERED: ONDA8TAB6 PO (08:01)
[2016-06-06] MEDS ORDERED: ASPEC81 PO (08:01)
--- NOTE | 2016-06-06 08:02 | Discharge Instructions ---
Discharge Instructions Date of Service Jun 06, 2016. Admission Reason for Admission: Right Knee Degenerative Joint Disease Discharge Discharge Diagnosis / Problem: Right TKA Discharge Goals Goal(s): Improve function Activity Recommendations Activity Limitations: as noted below . Instructions / Follow-Up Instructions / Follow-Up ACTIVITY RECOMMENDATIONS: SELF CARE INSTRUCTIONS AFTER TOTAL KNEE REPLACEMENT A. You may need to continue a physical therapy program after discharge from the hospital. There are several options available to you. Your doctor will assist you in selecting the best one for you. 1. An out-patient facility 2 to 3 times a week for therapy or home therapy. 2. Continue working on all exercises taught to you in the hospital. Your goals should be to increase bending of your knee to 90 degrees and beyond and to fully straighten your knee. B. You may progress at your own pace from walking with a walker or crutches to a cane; then to no assistive devices. C. Make walking a part of your daily routine. Be up as much as comfortable with rest periods throughout the day. Rest with leg elevation is very important. Use the ice wrap frequently for the first 3-4 weeks. D. There are no restrictions on activities. You may ride in a car, shop, participate in clinic physician and all social activities. E. Wear the long elastic stockings (VAIBHAV hose) 20 hours a day for 2 weeks after surgery. They can be removed several times a day for laundering and for a bath. F. You may shower, no tub baths until cleared by your doctor. SPECIAL CARE INSTRUCTIONS: VERY IMPORTANT TO READ AND REVIEW A. There are a few signs you need to watch for after you are home. Call [facility] if you notice any of the followin. Increased severe knee pain. Some pain is expected especially when you exercise. 2. Increased swelling in your leg or knee; pain or swelling of the calf muscle in either lower leg. 3. Any fluid drainage from the incision. 4. Shortness of breath or chest pain. B. Please call [facility] at if you have any concerns or questions about your operation or recovery. The doctor or his nurse will return your call promptly. C. You must take antibiotics before dental work, bladder, bowel or other surgery. Your doctor will provide you with a permanent care to carry describing this precaution. IMPORTANT: * REMEMBER TO TAKE ASPIRIN, 81 MG, TWICE DAILY FOR 4 WEEKS UNLESS OTHERWISE DIRECTED. THIS IS YOUR BLOOD THINNER. * HIGH RISK PATIENTS MAY BE PRESCRIBED A STRONGER BLOOD THINNER. THIS WILL BE PROVIDED AT DISCHARGE. * CALL IF INCREASED PAIN, REDNESS, DRAINAGE OR FEVER GREATER THAT 101. * WEAR VAIBHAV HOSE 20 HOURS PER DAY FOR 2 WEEKS. * YOU MAY HAVE A LARGE BAND-AID LIKE DRESSING (SILVERON). THIS WILL REMAIN ON YOUR INCISION FOR 7 DAYS, THEN CAN BE REMOVED. IF INCISION IS LEAKING THROUGH DRESSING, CALL THE OFFICE . FOLLOW UP VISIT: If appointment is not already scheduled: Please call [facility] to make a follow-up appointment for 2 weeks after your surgery at . Current Hospital Diet Patient's current hospital diet: Regular Diet Discharge Diet Recommended Diet: Regular Diet Procedures Procedures Performed: Right Total Knee Arthroplasty Pending Studies Studies pending at discharge: no Laboratory Results Hemoglobin A1c Test 04/24/16 15:41 Range/Units Estimated Average Glucose 126 mg/dl Hemoglobin A1c 6.0 H 4.5-5.6 % Medical Emergencies . Who to Call and When: Medical Emergencies: If at any time you feel your situation is an emergency, please call 911 immediately. . Non-Emergent Contact Non-Emergency issues call your: Primary Care Provider . "Provider Documentation" section prepared by David Myers. . VTE Core Measure Inpt VTE Proph given/why not?: Other Anticoagulation (asa), T.E.D. Stockings, SCD's [place] Drug Monitoring Program Search Results: patient reviewed within database, no issues identified
[2016-06-06] MEDS: OXYCODONE HCL 10 MG TABCR (OXYCONTIN) PO SCH (08:28)
[2016-06-06] MEDS: FEXOFENADINE HCL 180 MG TAB PO SCH (08:29)
[2016-06-06] MEDS: ASPIRIN 81 MG ECTAB PO SCH (08:29)
[2016-06-06] MEDS: PANTOprazole SOD 40 MG TAB PO SCH (08:29)
[2016-06-06] MEDS: DOCUSATE SODIUM 100 MG CAP PO SCH (08:29)
[2016-06-06] MEDS: MULTIVITAMIN TAB PO SCH (08:29)
[2016-06-06] MEDS: CeleBREX 200 MG CAP PO SCH (08:29)
[2016-06-06 09:43] VITALS: BP 150/85; PULSE 70; TEMP 36.5; O2SAT 96
--- NOTE | 2016-06-18 17:01 | DISCHARGE SUMMARY ---
HISTORY OF PRESENT ILLNESS: This is a 56-year-old female patient of Dr. Nicholas'yanet complaining of chronic right knee pain, long-standing progressively getting worse. The patient failed conservative treatment and elected to proceed with a right total knee arthroplasty. PAST MEDICAL HISTORY: Sleep apnea, osteoarthritis, and acid reflux. POSTOPERATIVE COURSE: The patient underwent a right total knee arthroplasty on 06/03/2016. She was followed closely with medical consultation, physical therapy, pain control, DVT prophylaxis in the form of aspirin. She did have some issues with pain on postoperative day #3 that had all settled down with a very little change in her pain regimen. She ended up being discharged postoperative day #3 with no other issues. PHYSICAL EXAMINATION: On discharge, right knee in Silverlon dressing, was clean, dry and intact. There was no redness or drainage. She had no calf tenderness. Negative Homans sign. Neurologically and neurovascularly she is intact in her right lower extremity. DIAGNOSES: Status post right total knee arthroplasty with a history of sleep apnea, osteoarthritis, and acid reflux. PLAN: The patient was discharged home with outpatient physical therapy. She will continue her preadmission medication, pain control and aspirin twice daily for DVT prophylaxis. She will follow up as an outpatient schedule.
== END 2016-06-06 11:55 | disposition home or self-care (01) | DRG 470 ==
LOC: ENRESERVTM → ENRESERVDT → C.ACU 07:53 → C.3E 08:45
PROVIDERS: ADMIT Orthopaedic Surgery Sports Medicine; ATTEND Orthopaedic Surgery Sports Medicine
PROC: 0SRC0J9 Replacement of Right Knee Joint with Synthetic Substitute, Cemented, Open Approach (ICD-10-PCS; principal; 2016-06-03 10:00)
DX: M17.11 Unilateral primary osteoarthritis, right knee (principal); Z68.41 Body mass index [BMI] 40.0-44.9, adult; K21.9 Gastro-esophageal reflux disease without esophagitis; G47.9 Sleep disorder, unspecified; R06.83 Snoring; E66.9 Obesity, unspecified; Z79.899 Other long term (current) drug therapy

== ENCOUNTER 2021-05-08 05:04 | Observation (INO) ==
--- NOTE | 2021-05-05 14:38 | Anesthesiology Consultation ---
Date of Service May 05, 2021 Assessment & Plan (1) Encounter for pre-operative examination: - COVID screening: Per assessment on 05/05: Travel screen negative and no known COVID-19 positive contacts. Patient vaccinated. Patient did have recent sinus infection (cough/congestion) treated by PCP with abx/resolved. Surgeon arranging preop COVID testing (scheduled 05/06; [place]). Awaiting results. - S/P Right TKA (06/03/16): SAB at L3-L4 (x1 attempt) + PNB at [facility] Chart Review Chart Review: Acceptable Risk for Surgery and Patient NOT seen in Pre Admission Testing History Surgery Operation Date: 05/08/21 11:15 Proposed Procedures p Left Total Knee Arthroplasty - Bart Nicholas MD Height/Weight Height: 5 ft 3 in Weight: 94.347 kg Allergies Allergy/AdvReac Type Severity Reaction Status Date / Time No Known Allergies Allergy Unknown Verified 05/05/21 13:26 Medications Home Medications Medication Instructions Recorded Confirmed Last Taken acetaminophen 500 mg tablet 1,000 mg PO Q6H PRN 12/13/20 05/05/21 Unknown ascorbic acid (vitamin C) 1,000 mg 1 g PO QAM 12/13/20 05/05/21 Unknown tablet (Vitamin C) cholecalciferol (vitamin D3) 50 50 mcg PO QAM 12/13/20 05/05/21 Unknown mcg (2,000 unit) tablet (Vitamin D3) diclofenac sodium 75 mg 75 mg PO BID 12/13/20 05/05/21 Unknown tablet,delayed release famotidine 20 mg tablet 20 mg PO QAM 12/13/20 05/05/21 Unknown fexofenadine 180 mg tablet 180 mg PO QAM 12/13/20 05/05/21 Unknown meclizine 25 mg tablet 25 mg PO TID PRN 12/13/20 05/05/21 Unknown omega 8-nrv-ecw-fish oil 1,200 mg 1 cap PO BID 12/13/20 05/05/21 Unknown (144 mg-216 mg) capsule (Fish Oil) pantoprazole 20 mg tablet,delayed 20 mg PO QAM PRN 12/13/20 05/05/21 Unknown release azithromycin 250 mg tablet 250 mg PO UD 05/05/21 05/05/21 Unknown magnesium 200 mg tablet 400 mg PO QAM 05/05/21 05/05/21 Unknown Past Medical History Medical History DJD (degenerative joint disease) GERD (gastroesophageal reflux disease) Obesity Pancreatitis treated inpatient for ~1 week at [facility] (~2017) Vertigo Occasional Past Family History Family History Father Family history of diabetes mellitus Family hx of colon cancer Brother Family history of diabetes mellitus Mother Family history of diabetes mellitus Past Surgical History Surgical History H/O wisdom tooth extraction History of cholecystectomy History of colonoscopy History of esophagogastroduodenoscopy (EGD) History of repair of rotator cuff Left History of total knee replacement Right TKA (06/03/16): SAB at L3-L4 (x1 attempt) + PNB at [facility] Social History Smoking Status: Never smoker Do You Dip or Chew Tobacco: No Hx Alcohol Use: Yes Alcohol type: wine alcohol intake frequency: holidays/special occasions only Hx Substance Use: No Lab Results Anesthesia Preop Results Results Anesthesia Widget: WBC 6.50 K/uL (4.8-10.8) 04/18/21 Hgb 13.7 g/dL (12.0-16.0) 04/18/21 Hct 41.1 % (37-47) 04/18/21 Plt 228 K/uL (130-400) 04/18/21 Na 140 mmol/L (136-145) 04/18/21 K 4.0 mmol/L (3.5-5.1) 04/18/21 Cl 105 mmol/L (98-107) 04/18/21 CO2 28 mmol/L (21-32) 04/18/21 BUN 24 mg/dl (6-23) H 04/18/21 Creat 0.96 mg/dl (0.6-1.2) 04/18/21 Glucose Level 123 mg/dl (70-99(Fasting)) H 04/18/21 PT 10.3 Seconds (9.0-12.0) 04/18/21 PTT 25.4 Seconds (21.0-31.0) 04/18/21 INR 1.0 (0.9-1.1) 04/18/21 HA1c 6.5 % (4.5-5.6) H 04/18/21 Urine Color Yellow 04/18/21 Urine Appearance Clear (Clear) 04/18/21 Urine pH 5.0 (4.5-7.5) 04/18/21 Urine Specific Eads 1.029 (1.000-1.030) 04/18/21 Urine Protein Negative (Negative) 04/18/21 Urine Glucose (UA) Negative (Negative) 04/18/21 Urine Ketones Trace (Negative) H 04/18/21 Urine Blood Negative (Negative) 04/18/21 Urine Nitrite Negative (Negative) 04/18/21 Urine Bilirubin Negative (Negative) 04/18/21 Urine Urobilinogen Negative (Negative) 04/18/21 Urine Leukocyte Esterase 1+ (Negative) H 04/18/21 Urine WBC (Auto) 10-30 /hpf (0-5) H 04/18/21 Urine RBC (Auto) 5-10 /hpf (0-4) H 04/18/21 Urine Hyaline Casts (Auto) 0 /lpf (0-5) 04/18/21 Urine Epithelial Cells (Auto) >30 /lpf (0-5) H 04/18/21 Urine Bacteria (Auto) Negative (Negative) 04/18/21 Testing Electrocardiogram Date: 12/20/20 NSR at 73bpm. Chest X-Ray Date: 12/20/20 Findings: + NAD
--- NOTE | 2021-05-07 16:43 | History & Physical Report ---
Date of Service May 07, 2021 Assessment & Plan (1) Primary osteoarthritis of left knee: Plan: Treatment options discussed with patient. She has failed conservative measures. She would like to proceed with knee replacement. Risks, benefits and alternatives to surgery including but not limited to infection, DVT, pain, stiffness, need for revision surgery, damage to blood vessels, damage to nerves, PE, , were discussed with the patient and they wish to proceed. Plan will be for left total knee arthroplasty with Dr. Nicholas at [facility] on May 08, 2021. We will plan on aspirin 81 mg twice daily for 1 month postop for DVT prophylaxis. We will plan on home health PT. All questions answered. Follow-up History of Present Illness Chief Complaint: Left knee pain Primary Care Provider: Sonia Ley PA-C 60-year-old female with past medical history significant for GERD, and o ccasional vertigo presents with longstanding left knee pain. She has had previous knee replacement on the right side with good results. She has pain interfering with her daily activities. She has failed conservative measures including cortisone injections and anti-inflammatories. She would like to proceed with knee replacement. Patient denies headaches, sweats, fevers, chills, double vision, blurred vision, cough, sore throat, dysphagia, chest pain, sob, wheezing, n/v/d/c, numbness, tingling, fatigue, urinary symptoms, mood disorders. ROS positive for left knee pain and stiffness. Allergies Allergy/AdvReac Type Severity Reaction Status Date / Time No Known Allergies Allergy Unknown Verified 05/05/21 13:26 Home Medications Medication Instructions Recorded Confirmed Type acetaminophen 500 mg tablet 1,000 mg PO Q6H PRN 12/13/20 05/05/21 History ascorbic acid (vitamin C) 1,000 mg 1 g PO QAM 12/13/20 05/05/21 History tablet (Vitamin C) cholecalciferol (vitamin D3) 50 50 mcg PO QAM 12/13/20 05/05/21 History mcg (2,000 unit) tablet (Vitamin D3) diclofenac sodium 75 mg 75 mg PO BID 12/13/20 05/05/21 History tablet,delayed release famotidine 20 mg tablet 20 mg PO QAM 12/13/20 05/05/21 History fexofenadine 180 mg tablet 180 mg PO QAM 12/13/20 05/05/21 History meclizine 25 mg tablet 25 mg PO TID PRN 12/13/20 05/05/21 History omega 5-nof-gtu-fish oil 1,200 mg 1 cap PO BID 12/13/20 05/05/21 History (144 mg-216 mg) capsule (Fish Oil) pantoprazole 20 mg tablet,delayed 20 mg PO QAM PRN 12/13/20 05/05/21 History release azithromycin 250 mg tablet 250 mg PO UD 05/05/21 05/05/21 History magnesium 200 mg tablet 400 mg PO QAM 05/05/21 05/05/21 History Past Med/Surg History Medical History DJD (degenerative joint disease) GERD (gastroesophageal reflux disease) Obesity Pancreatitis treated inpatient for ~1 week at [facility] (~2017) Vertigo Occasional Surgical History H/O wisdom tooth extraction History of cholecystectomy History of colonoscopy History of esophagogastroduodenoscopy (EGD) History of repair of rotator cuff Left History of total knee replacement Right TKA (06/03/16): SAB at L3-L4 (x1 attempt) + PNB at [facility] Family History Father Family history of diabetes mellitus Family hx of colon cancer Brother Family history of diabetes mellitus Mother Family history of diabetes mellitus Social History (Updated 12/13/20 @ 14:07 by Ida Mancini RN) Smoking Status: Never smoker Second Hand Exposure: Yes (hx); Hx Alcohol Use: Yes Alcohol type: wine Hx Substance Use: No Preferred Language: Trinidadian Communication Ability: Effective Chain Maker Hand Required: No Beliefs That Will Affect Care: None Current Living Situation: Spouse current occupational status: unemployed Feels Safe at Home: Yes Assistive Devices: Cane and Glasses Review of Systems All systems reviewed & are unremarkable except as noted in HPI & below Physical Exam Constitutional: well developed and well nourished; no acute distress Eyes: PERRL, conjunctivae normal, anicteric sclerae ENMT: external ear and nose normal, oropharynx normal Neck: trachea midline, no thyromegaly Respiratory: normal respiratory effort, lungs clear to auscultation Cardiovascular: RRR, no murmur, no edema Musculoskeletal: Left knee: She has varus alignment. Active pain on range of motion. Mild effusion. Tenderness medial joint line. Stable to valgus and varus stress test. Negative Jill's. Range of motion 0 to 130 degrees. Skin: no rashes, warm and dry Neurologic: patellar DTR's 2+ bilat, sensation intact Psychiatric: A+Ox3, euthymic affect Results & Data ([facility]) Diagnostic Findings Left knee radiographs demonstrate tricompartmental degenerative changes, [id number] medial compartment on flexion view. There is periarticular os teophyte formation and subchondral sclerosis
[2021-05-08] MEDS ORDERED: TRANEXAMIC ACID 1,000 MG **IV Intra-op IV SCH (06:00)
[2021-05-08] MEDS ORDERED: ceFAZolin 2000MG 2,000 MG/15 ML SYR IV SCH (06:00)
[2021-05-08] MEDS ORDERED: FAMOTIDINE 20 MG TAB PO SCH (06:00)
[2021-05-08] MEDS ORDERED: ROPIVACAINE 0.5% HCL/PF 150 MG, BUPIVACAINE 0.75% MPF 20 ML, EPINEPHrine 30MG/30ML (OR ... INSTIL SCH (06:00)
[2021-05-08] MEDS ORDERED: GABAPENTIN 600 MG DOSE PO SCH (06:00)
[2021-05-08] MEDS ORDERED: ACETAMINOPHEN 500 MG TAB PO SCH (06:00)
[2021-05-08] MEDS ORDERED: LR 500ML BOLUS, THEN 15ML/HR IV SCH (06:00)
[2021-05-08] MEDS ORDERED: CeleBREX 200 MG CAP PO SCH (06:00)
[2021-05-08] MEDS ORDERED: METOCLOPRAMIDE HCL 10 MG TABLET PO SCH (06:00)
[2021-05-08] MEDS ORDERED: TRANEXAMIC ACID 1,000 MG **IV Pre-op IV SCH (06:00)
[2021-05-08] MEDS ORDERED: dexAMETHasone 4 MG TAB PO SCH (06:00)
[2021-05-08] MEDS ORDERED: BUPIVACAINE 0.25% 30 ML VIAL ONE (06:29)
[2021-05-08] MEDS ORDERED: DEXAMETHASONE SOD INJ 4 MG/ML VIAL ONE (06:29)
[2021-05-08] MEDS ORDERED: EPINEPHrine INJ 1 MG/ML AMP ONE (06:29)
[2021-05-08] MEDS ORDERED: BUPIVACAINE 0.5 % 5 MG/1 ML PF 10ML VIAL ONE (06:29)
[2021-05-08] MEDS ORDERED: MIDAZOLAM HCL 1 MG/ML 2ML VIAL ONE ×2 (06:59→07:03)
[2021-05-08] MEDS ORDERED: fentaNYL citrate 100 MCG/2 ML VIAL ONE (06:59)
[2021-05-08] MEDS ORDERED: ORTHO JOINT ANESTHETIC ONE (07:01)
--- NOTE | 2021-05-08 07:06 | History & Physical Bridge Note ---
Date of Service May 08, 2021 History & Physical Bridge Note I have examined the patient, reviewed the History & Physical and in the interval since the performance of the History & Physical I have noted the following changes of clinical significance: had uri rx with antibiotics and symptoms improved.
[2021-05-08] MEDS ORDERED: ePHEDrine sulfate 50 MG/ML AMP IV PRN (07:52)
[2021-05-08] MEDS ORDERED: ATROPINE SULFATE 0.1 MG/ML 10ML SYR IV PRN (07:52)
[2021-05-08] MEDS ORDERED: fentaNYL citrate 100 MCG/2 ML VIAL IV PRN (07:52)
[2021-05-08] MEDS ORDERED: ONDANSETRON INJ 2 MG/ML 2 ML VIAL IV PRN ×2 (07:52→12:39)
--- NOTE | 2021-05-08 09:09 | Operative Report ---
Post Operative Report Pre & Post Diagnosis Operation Date: 05/08/21 07:15 Pre-Op Diagnosis: Left Knee Osteoarthritis, obesity BMI 37.8 Post-Op Diagnosis: Left Knee Osteoarthritis, obesity BMI 37.8 I identified the patient and participated in the time-out.: Yes Procedure Operation Date: 05/08/21 07:15 Actual Procedures p Left Total Knee Arthroplasty, superficial wound VAC application - Bart Nicholas MD Surgeon Bart Nicholas MD Systems Security Analyst Parker LOUISE Estimated Blood Loss 5 Findings Consistent with Post-Op Diagnosis Specimens Bone cuts Drains 2 Hemovac Anesthesia Type MAC Spinal Regional Complications none Disposition Accompanied Patient To Recovery: No Disposition: Recovery Room Indications 60-year-old female with progressive osteoarthritis her left knee failed conservative management. Patient has patellofemoral medial compartment OA [id number] medial compartment varus knee. Patient had prior successful right total knee replacement in the past. Description of Procedure The patient was taken to the operating room and anesthetized under spinal MAC regional block. Patient was placed supine on the the operating table. A pneumatic tourniquet was placed about the obese left upper thigh. The knee exam demonstrated slight flexion contracture 5 degrees with flexion to 125 degrees varus knee no pseudolaxity. The involved leg was elevated exsanguinated with Esmarch bandage and the pneumatic tourniquet was raised to 350 millimeters mercury. A longitudinal incision was made across the anterior knee. Skin flaps were elevated. An incision was made into the medial retinaculum and extended up into the mid third of the quadriceps tendon and extended down to the tibial tubercle. Intra-articular findings demonstrated tricompartmental osteoarthritis grade 4 trochlear disease and grade 4 medial compartment [id number]. Several loose bodies. The knee was exposed by excising cruciate ligaments and menisci. All loose bodies were removed. The infrapatellar fat pad was resected. The fat pad over the anterior femur at the upper aspect of the articular surface was resected for placement of the component in that area. A subperiosteal peel lateral release was performed around the patella The [employer] journey 2.0 posterior stabilized total knee arthroplasty system was utilized for the procedure. The custom femoral cutting guide was pinned in position. The distal femoral cut was made. The size 5, 5 in 1 cutting block was placed. The anterior posterior and chamfer cuts were made. The knee was extended and a free hand cut technique was performed to the patella. The patella with was measured and the width was reproduced using a 35 symmetrical patella component. 3 drill holes are made for the patella component pegs. The tibia was then subluxed. The custom tibial cutting block was pinned in position and the proximal tibial cut was made with the oscillating saw. The size 3 tibial trial was externally rotated in line with the tibial tubercle and pinned in position. The punch for the stem was used. The femoral trial was inserted and centered the notch cutting devices were used and the collet was placed. Tibial trials were used for the insert. The size 11 trial gave balanced ligaments through full range of motion. Medial and posterior medial release was utilized to balance ligaments. Patella tracking was assessed with range of motion. The patella tracked centrally. The trials were removed. The Orthomix anesthetic cocktail was injected per protocol. The cut bone surfaces and soft tissue were copiously irrigated with pulsatile lavage saline solution. The final components were cemented with Simplex cement. The final components were [employer] journey 2.0 left size 5 posterior stabilized femoral component, 3 left tibial component, 11 mm posterior stabilized polyethylene insert, 35 symmetrical patella. After the cement cured the Betadine soak was used per protocol. the knee was then copiously irrigated with pulsatile lavage saline solution. 2 drains were brought out laterally connected to Hemovac. The quadriceps tendon and medial retinaculum were closed with interrupted [id number] #1 Vicryl sutures. The knee was taken through full range of motion and repair was secure. The subcutaneous tissues were closed with 2-0 Vicryl sutures. The skin was closed with dagoberto. A bonny and Acticoat superficial wound VAC was applied. The tourniquet was let down and the patient had good capillary refill to the extr emity. The patient tolerated the procedure well. My physician dental assistant Parker LOUISE acted as event marketing assistant and assisted through the entire procedure with primary function as event marketing assistant including prepping draping leg positioning soft tissue retraction instrument management and assisted in the closure , superficial wound VAC application and will participate in postoperative care the patient. I attest to the content of the Intraoperative Record and any orders documented therein. Any exceptions are noted below.
--- NOTE | 2021-05-08 10:30 | XRay Report ---
LEFT KNEE 2 VIEWS History: Left total knee arthroplasty. Degenerative arthritis. Postop. FINDINGS: The patient is status post a left total knee arthroplasty. The hardware is intact. No fract ure or dislocation. Skin dagoberto and surgical drains are in place. IMPRESSION: Left total knee arthroplasty. No evidence for hardware complication. ACT 112: Negative or not required by law. Electronically signed by: Rahul Do M.D. 05/08/2021 10:29 AM
--- NOTE | 2021-05-08 10:58 | Anesthesiology Progress Note ---
Date of Service May 08, 2021 Anesthesia Post Procedure Vital Signs Vital Signs: Temp Pulse Pulse Resp BP Pulse Ox 05/08/21 10:55 37.1 C 94 H 16 171/88 H 92 05/08/21 10:45 91 H 19 173/84 H 95 05/08/21 10:35 91 H 15 171/85 H 95 05/08/21 10:25 87 15 163/79 H 97 05/08/21 10:15 95 H 17 176/79 H 96 05/08/21 10:05 97 H 15 180/87 H 97 05/08/21 09:55 36.6 C 101 H 17 156/83 H 100 05/08/21 05:35 36.7 C 88 18 184/114 H 97 Pain Intensity Left Knee: Pain Intensity: 2 Transfer of Care Handoff Completed per policy Notes Mental Status: alert / awake / arousable and participated in evaluation Nausea / Vomiting: adequately controlled Pain: adequately controlled Airway Patency, RR, SpO2: stable & adequate BP & HR: stable & adequate Hydration State: stable & adequate Neuraxial Anesthesia: was administered and sensory block is resolving Anesthetic Complications: no major complications apparent and Pt Satisfied with anesthetic care
[2021-05-08] MEDS ORDERED: ONDANSETRON INJ 2 MG/ML 2 ML VIAL ONE (11:08)
[2021-05-08] MEDS ORDERED: PROPOFOL IV EMULSION 10 MG/ML 20 ML VIAL IV ONE (11:08)
[2021-05-08] MEDS ORDERED: NALOXONE HCL 0.4 MG/1 ML VIAL/CARP IV PRN (12:39)
[2021-05-08] MEDS ORDERED: bisacodyL 10 MG SUPP PR PRN (12:39)
[2021-05-08] MEDS ORDERED: MECLIZINE HCL 25 MG TAB PO PRN (12:39)
[2021-05-08] MEDS ORDERED: METOCLOPRAMIDE HCL INJ 5 MG/ML 2 ML VIAL IV PRN (12:39)
[2021-05-08] MEDS ORDERED: HYDROmorphone INJ 0.5 MG/0.5 ML SYR IV PRN (12:39)
[2021-05-08] MEDS ORDERED: MAGNESIUM HYDROXIDE SUSP 30 ML UDC PO PRN (12:39)
[2021-05-08] MEDS ORDERED: PANTOprazole 40 MG TAB PO PRN (12:39)
[2021-05-08] MEDS ORDERED: oxyCODONE HCL IR 5 MG TAB (IMMEDIATE RELEASE) PO PRN (12:39)
--- NOTE | 2021-05-08 13:03 | Hospitalist Consultation ---
Date of Consultation May 08, 2021 Assessment & Plan (1) Primary osteoarthritis of left knee: -S/P left TKA today with Dr. Nicholas. -Defer management of diet/pain/IVF/ABX/bowel regimen to primary team. -CBC and BMP in AM. -Continue to monitor VS. (2) Postoperative hypertension: -Hypertensive in the postoperative setting without a diagnosis of HTN, not on any home meds. States her BP at PCP appts is in 130/80s. -Will continue to monitor for now, have ordered 10 mg IV hydralazine q4h PRN for SBP > 180. (3) Vertigo: -Has frequent episodes, currently complaining of dizziness now consistent with her typical vertigo presentation. -Meclizine 25 mg TID PRN. (4) GERD (gastroesophageal reflux disease): -Chronic, stable. -Continue Pepcid 20 mg daily with Protonix 20 mg daily prn. -admit to med/surg -SCDs, ASA 81 BID for DVT ppx per primary team. -full code. Supervising Physician Co-Signing Physician Notes I personally saw and examined the patient. I verified all maria points and agree with Doris Norris PA-C with the following exceptions and/or additions: 60 year old female POD #0 left total knee arthroplasty O/E NV intact, HS1+2, no murmurs, Chest CTAB, Abdo SNT A/P No significant medical complaints at current time. No change to plan above. History of Present Illness Reason for Consultation: post op medical management Attending Physician: Bart Nicholas MD History of Present Illness Patient is a 60 y/o female with PMH significant for GERD, DJD s/p right TKA in 2016, and vertigo who underwent L TKA today, 05/08, with Dr. Nicholas. She had previously been having pain interfering with her daily activities.She has failed conservative measures including cortisone injections and anti- inflammatories.Hospitalist service has been consulted for post-operative medical management. This afternoon during my visit, she is requesting her meclizine, as she is beginning to feel dizzy, as she has frequent episodes of vertigo. Otherwise without complaints, denies fever, pain, nausea/vomiting/diarrhea/constipation, chest pain, SOB. She is eating her lunch. Allergies Allergy/AdvReac Type Severity Reaction Status Date / Time No Known Allergies Allergy Unknown Verified 05/08/21 05:31 Home Medications Medication Instructions Recorded Confirmed Type acetaminophen 500 mg tablet 1,000 mg PO Q6H PRN 12/13/20 05/08/21 History ascorbic acid (vitamin C) 1,000 mg 1 g PO QAM 12/13/20 05/08/21 History tablet (Vitamin C) cholecalciferol (vitamin D3) 50 50 mcg PO QAM 12/13/20 05/08/21 History mcg (2,000 unit) tablet (Vitamin D3) diclofenac sodium 75 mg 75 mg PO BID 12/13/20 05/08/21 History tablet,delayed release famotidine 20 mg tablet 20 mg PO QAM 12/13/20 05/08/21 History fexofenadine 180 mg tablet 180 mg PO QAM 12/13/20 05/08/21 History meclizine 25 mg tablet 25 mg PO TID PRN 12/13/20 05/08/21 History omega 6-zhf-lox-fish oil 1,200 mg 1 cap PO BID 12/13/20 05/08/21 History (144 mg-216 mg) capsule (Fish Oil) pantoprazole 20 mg tablet,delayed 20 mg PO QAM PRN 12/13/20 05/08/21 History release azithromycin 250 mg tablet 250 mg PO UD 05/05/21 05/08/21 History magnesium 200 mg tablet 400 mg PO QAM 05/05/21 05/08/21 History acetaminophen 500 mg tablet 1,000 mg PO Q8 #60 tab 05/09/21 Rx (Tylenol Extra Strength) aspirin 81 mg tablet,delayed 81 mg PO BID #60 tab 05/09/21 Rx release tramadol 50 mg tablet 50 mg PO .Q4h-6h PRN #30 tab MDD 6 05/09/21 Rx Patient History Medical History (Updated 05/08/21 @ 13:01 by Doris Norris PA-C) DJD (degenerative joint disease) GERD (gastroesophageal reflux disease) Obesity Pancreatitis treated inpatient for ~1 week at [facility] (~2017) Vertigo Occasional Surgical History H/O wisdom tooth extraction History of cholecystectomy History of colonoscopy History of esophagogastroduodenoscopy (EGD) History of repair of rotator cuff Left History of total knee replacement Right TKA (06/03/16): SAB at L3-L4 (x1 attempt) + PNB at [facility] Family History Father Family history of diabetes mellitus Family hx of colon cancer Brother Family history of diabetes mellitus Mother Family history of diabetes mellitus Social History Smoking Status: Never smoker Second Hand Exposure: Yes (hx); Do You Dip or Chew Tobacco: No; Tobacco Cessation Education Requested by Patient: No Hx Alcohol Use: Yes Alcohol type: wine Hx Substance Use: No Preferred Language: Hebrew Communication Ability: Effective Nitroglycerin Supervisor Required: No Beliefs That Will Affect Care: None marital status: Current Living Situation: Spouse current occupational status: unemployed Other Information That Helps Us Care for You: No Feels Safe at Home: Yes Safety Concerns: Feels Safe At This Time Assistive Devices: Walker Assistive Devices Comment: mary cooper Review of Systems Review of Systems: Constitutional: No fever, sweats or chills Eyes: No diplopia, no worsening or blurred vision ENT: normal hearing, no trouble swallowing Respiratory: No cough, sputum, dyspnea at rest or on exertion Cardiovascular: No chest pain, tightness or palpitations Abdomen: No pain, nausea, vomiting, diarrhea or constipation Musculoskeletal: No joint pain, calf pain, swelling Neurologic: reports mild dizziness consistent with her typical episodes of vertigo; No weakness, numbness/tingling, or balance problems Psychiatric: No anxiety or depression Skin: No rash or itch Physical Exam Physical Exam: General: awake, alert, no apparent distress Head: Normocephalic, atraumatic ENT: PERRL, EOMI, no pharyngeal exudate, mucous membranes moist Chest: Clear to auscultation, on room air, no adventitious breath sounds Cardiac: Regular rate and rhythm, no murmur, no JVD, normal peripheral pulses, good capillary refill Abdominal: NABS x 4 quadrants, soft, nontender to palpation, no rebound, guarding or tenderness Extremities: Normal inspection, no peripheral edema or erythema, calfs nontender to palpation Psych: Normal mood and affect Neuro: AAO x 3, strength intact bilaterally and rated 5/5, no motor deficits, speech is clear, no peripheral sensory deficits Skin: no rash or erythema Results & Data Results & Data ([facility]) Vital Signs (Past 12 Hours) Vital Signs Temp Pulse Pulse Resp BP Pulse Ox 05/08/21 12:30 36.9 C 92 H 16 186/96 H 95 05/08/21 12:25 91 H 16 172/84 H 95 05/08/21 12:03 37.2 C 92 H 18 174/93 H 94 05/08/21 11:25 96 H 19 177/95 H 91 05/08/21 11:15 94 H 15 172/90 H 93 05/08/21 11:05 94 H 16 172/80 H 90 05/08/21 10:55 37.1 C 94 H 17 171/88 H 92 05/08/21 10:45 91 H 19 173/84 H 95 05/08/21 10:35 91 H 15 171/85 H 95 05/08/21 10:25 87 15 163/79 H 97 05/08/21 10:15 95 H 17 176/79 H 96 05/08/21 10:05 97 H 15 180/87 H 97 05/08/21 09:55 36.6 C 101 H 17 156/83 H 100 05/08/21 05:35 36.7 C 88 18 184/114 H 97 Laboratory Results Lab Results 05/08/21 05/08/21 Range/Units 05:41 Unknown SARS-CoV-2, RNA, NAAT NEGATIVE (NEGATIVE) Blood Type A Positive Antibody Screen NEGATIVE Diagnostic Findings Knee X-Ray 05/08/21 10:03 LEFT KNEE 2 VIEWS History: Left total knee arthroplasty. Degenerative arthritis. Postop. FINDINGS: The patient is status post a left total knee arthroplasty. The hardware is intact. No fracture or dislocation. Skin dagoberto and surgical drains are in place. IMPRESSION: Left total knee arthroplasty. No evidence for hardware complication. PG Care Time/CCT Total # of Minutes Spent Total Time Spent with Patient: Total time spent is greater than 50% in coordination of care (as documented) at patient's floor/unit and/or counseling patient: Coding Level of Care Code 14533 Inpt Consult Level 2 Diagnoses Primary osteoarthritis of left knee M17.12 Vertigo R42 GERD (gastroesophageal reflux disease) K21.9 Postoperative hypertension I97.3
[2021-05-08] MEDS ORDERED: hydrALAZINE HCL 20 MG/ML VIAL IV PRN (13:31)
[2021-05-08] MEDS: SODIUM CHLORIDE 0.9% 1000ML 1,000 ML IV SCH (14:32)
[2021-05-08] MEDS: ACETAMINOPHEN 500 MG TAB PO SCH ×2 (15:31→21:24)
[2021-05-08] MEDS: ceFAZolin 2000MG 2,000 MG/15 ML SYR IV SCH (15:31)
[2021-05-08] MEDS ORDERED: SENNA 8.6 MG TAB PO SCH (21:00)
[2021-05-08] MEDS ORDERED: traMADol HCL 50 MG TABLET PO PRN (21:19)
[2021-05-08] MEDS: CeleBREX 200 MG CAP PO SCH (21:22)
[2021-05-08] MEDS: DOCUSATE SODIUM 100 MG CAP PO SCH (21:22)
[2021-05-08] MEDS: ASPIRIN 81 MG ECTAB PO SCH (21:23)
[2021-05-09] MEDS: ceFAZolin 2000MG 2,000 MG/15 ML SYR IV SCH (00:31)
[2021-05-09] MEDS: SODIUM CHLORIDE 0.9% 1000ML 1,000 ML IV SCH (00:35)
[2021-05-09] MEDS: ACETAMINOPHEN 500 MG TAB PO SCH ×2 (05:46→13:07)
--- NOTE | 2021-05-09 07:28 | Orthopedic Progress Note ---
Date of Service May 09, 2021 Assessment & Plan (1) Primary osteoarthritis of left knee: Plan: Postop day #1 left total knee arthroplasty -PT/OT per protocol -DVT prophylaxis: SCDs, teds, aspirin 81 mg twice daily -Pain management: Switch to tramadol as she cannot tolerate oxycodone -A.m. labs are pending -Discharge planning: Plan on discharge home with home health. We will see how she does with therapy later today as well as monitor Hemovac output. Possible d ischarge today versus tomorrow. Will recheck after PT. Admission and Anticipated Discharge Date Admission Date: May 08, 2021 Subjective Patient is sitting at edge of bed. She is doing well this morning. She does have some pain in her knee but is well controlled. She denies complaints. No chest pain, shortness of breath, dizziness, headaches, fever/chills. Review of Systems Review of Systems: All systems reviewed & are unremarkable except as noted in Subjective Physical Exam Physical Exam: Left knee dressing is clean, dry, and intact. Hemovac intact. Chiquis functioning. Toes are mobile. Good dorsiflexion. No calf tenderness. Distally neurovascular status and sensation intact. Constitutional: WD/WN, vitals as above Results & Data ([facility]) Vital Signs (Past 12 Hours) Vital Signs Temp Pulse Resp BP Pulse Ox 05/09/21 07:18 36.6 C 71 16 151/78 H 93 05/09/21 03:38 70 16 136/77 94 05/08/21 22:22 36.6 C 68 16 153/79 H 94
[2021-05-09] MEDS: CeleBREX 200 MG CAP PO SCH (08:22)
[2021-05-09] MEDS: ASPIRIN 81 MG ECTAB PO SCH (08:22)
[2021-05-09] MEDS: DOCUSATE SODIUM 100 MG CAP PO SCH (08:23)
[2021-05-09 08:51] LABS: Hematocrit (blood only) 36.6 % (37-47); Hemoglobin 12.2 g/dL (12.0-16.0); Mean Corpuscular Hemoglobin 30.1 pg (25-34); Mean Corpuscular Hgb Conc 33.3 g/dL (32-36); Mean Corpuscular Volume 90.4 fL (80-100); Mean Platelet Volume 11.8 fL (7.4-10.4); Platelet Count 234 K/uL (130-400); RDW Coefficient of Variation 12.3 % (11.5-14.5); RDW Standard Deviation 40.5 fL (36.4-46.3); Red Blood Count 4.05 M/uL (4.2-5.4); White Blood Count 12.78 K/uL (4.8-10.8)
[2021-05-09] MEDS ORDERED: MULTIVITAMIN TAB PO SCH (09:00)
[2021-05-09] MEDS ORDERED: MAGNESIUM OXIDE 400 MG TAB PO SCH (09:00)
[2021-05-09] MEDS ORDERED: CHOLECALCIFEROL 1,000 UNITS 25 MCG TAB PO SCH (09:00)
[2021-05-09] MEDS ORDERED: FAMOTIDINE 20 MG TAB PO SCH (09:00)
[2021-05-09] MEDS ORDERED: FEXOFENADINE HCL 180 MG TAB PO SCH (09:00)
[2021-05-09] MEDS ORDERED: ASCORBIC ACID 500 MG TAB PO SCH (09:00)
[2021-05-09 09:03] LABS: BUN Creatinine Ratio 28.3 (10-20); Calcium 8.5 mg/dl (8.5-10.1); Est GFR (African American) 78.4 ml/min; Est GFR (Non-African American) 67.7 ml/min; Potassium 4.1 mmol/L (3.5-5.1)
--- NOTE | 2021-05-09 11:14 | Hospitalist Progress Note ---
Date of Service May 09, 2021 Assessment & Plan (1) Primary osteoarthritis of left knee: Plan: -S/P left TKA 05/[address] Nicholas. -Defer management of diet/pain/IVF/ABX/bowel regimen to primary team - patient requested tramadol rather than oxycodone for pain management. -CBC and BMP reviewed and expected post operative changes noted. BUN at baseline. -Stable for discharge from medical perspective when ok from orthopedic stand point. (2) Postoperative hypertension: Plan: -Hypertensive in the postoperative setting without a diagnosis of HTN, not on any home meds. States her BP at PCP appts is in 130/80s. -Will continue to monitor for now, have ordered 10 mg IV hydralazine q4h PRN for SBP > 180. -No change to outpatient chronic medications on discharge (3) Vertigo: Plan: -Has frequent episodes, currently complaining of dizziness now consistent with her typical vertigo presentation. -Meclizine 25 mg TID PRN. (4) GERD (gastroesophageal reflux disease): Plan: -Chronic, stable. -Continue Pepcid 20 mg daily with Protonix 20 mg daily prn. Plan: -SCDs, ASA 81 BID for DVT ppx per primary team. -full code. Disposition - thank you for the consult, medicine will sign off at this time. Please contact if you require further assistance. Admission and Anticipated Discharge Date Admission Date: May 08, 2021 Subjective No acute concerns from patient. Orthopedics per note planning on discharge today or tomorrow depending on physical therapy. BP have been accetable post operatively. Review of Systems Review of Systems: All systems reviewed & are unremarkable except as noted in Subjective Physical Exam Constitutional: WD/WN, vitals as above Respiratory: normal respiratory effort, lungs clear to auscultation Cardiovascular: RRR, no murmur, no edema Musculoskeletal: Neurologically intact distal to operation site with normal plantar/dorsiflexion ankle/1st toe. No numbness. Neurologic: moves all extremities and awake; not confused Psychiatric: A+Ox3, euthymic affect Results & Data Results & Data ([facility]) Vital Signs (Past 12 Hours) Vital Signs Temp Pulse Resp BP Pulse Ox 05/09/21 07:18 36.6 C 71 16 151/78 H 93 05/09/21 03:38 70 16 136/77 94 PG Care Time/CCT Total # of Minutes Spent Total Time Spent with Patient: Total time spent is greater than 50% in coordination of care (as documented) at patient's floor/unit and/or counseling patient: Coding Level of Care Code 15431 Subseq Obs Care Lvl 1 Diagnoses Primary osteoarthritis of left knee M17.12 Postoperative hypertension I97.3 Vertigo R42 GERD (gastroesophageal reflux disease) K21.9
--- NOTE | 2021-05-12 15:13 | Discharge Summary ---
Date of Service May 12, 2021 Admission HPI Per Admitting Provider 60-year-old female with past medical history significant for GERD, and occasional vertigo presents with longstanding left knee pain. She has had previous knee replacement on the right side with good results. She has pain interfering with her daily activities. She has failed conservative measures including cortisone injections and anti-inflammatories. She would like to proceed with knee replacement. Patient denies headaches, sweats, fevers, chills, double vision, blurred vision, cough, sore throat, dysphagia, chest pain, sob, wheezing, n/v/d/c, numbness, tingling, fatigue, urinary symptoms, mood disorders. ROS positive for left knee pain and stiffness. Admission Exam Per Admitting Provider Constitutional: well developed and well nourished; no acute distress Eyes: PERRL, conjunctivae normal, anicteric sclerae ENMT: external ear and nose normal, oropharynx normal Neck: trachea midline, no thyromegaly Respiratory: normal respiratory effort, lungs clear to auscultation Cardiovascular: RRR, no murmur, no edema Musculoskeletal: Left knee: She has varus alignment. Active pain on range of motion. Mild effusion. Tenderness medial joint line. Stable to valgus and varus stress test. Negative Jill's. Range of motion 0 to 130 degrees. Skin: no rashes, warm and dry A Neurologic: patellar DTR's 2+ bilat, sensation intact Psychiatric: A+Ox3, euthymic affect Principal Diagnosis Left knee osteoarthritis Discharge Exam Left knee dressing is clean, dry, and intact. Hemovac intact. Chiquis functioning. Toes are mobile. Good dorsiflexion. No calf tenderness. Distally neurovascular status and sensation intact. Constitutional WD/WN, vitals as above well developed and well nourished; no acute distress Discharge Data Allergies Allergy/AdvReac Type Severity Reaction Status Date / Time No Known Allergies Allergy Unknown Verified 05/08/21 05:31 Consultations 05/08/21 05:00 Consult Hospitalist Routine Procedures Performed Operation Date: 05/08/21 07:15 Actual Procedures p Left Total Knee Arthroplasty(Left) - Bart Nicholas MD Ordered Studies 05/08/21 05:00 US - OR guided needle placemen Routine Hospital Course (1) Primary osteoarthritis of left knee: Patient presented for same day admission following left total knee arthroplasty on 05/08/21. She tolerated procedure well. The Patient had an uneventful hospital course. Post-operatively, her activity was progressed and well tolerated. They participated in PT with ambulation distance of 20 feet. ROM of operative knee reached 50 degrees. Labs remained stable- lowest hemoglobin recorded: 12.[address] Albaro Banks of medical service was consulted for medical management during admission. Pain controlled on oral medications. Please refer to daily progress notes and PT notes for complete details. After exam on 05/09/21, patient was felt to be stable for discharge home with home health PT. Patient will f/u in the office in about 2 weeks for further evaluation including x-rays and incision check, sooner if having any issues or concerns. Postop day #1 left total knee arthroplasty -PT/OT per protocol -DVT prophylaxis: SCDs, teds, aspirin 81 mg twice daily -Pain management: Switch to tramadol as she cannot tolerate oxycodone -A.m. labs are pending -Discharge planning: Plan on discharge home with home health. We will see how she does with therapy later today as well as monitor Hemovac output. Possible discharge today versus tomorrow. Will recheck after PT. Lab Results 05/08/21 05/08/21 05/09/21 Range/Units 05:41 Unknown 08:20 WBC 12.78 H (4.8-10.8) K/uL RBC 4.05 L (4.2-5.4) M/uL Hgb 12.2 (12.0-16.0) g/dL Hct 36.6 L (37-47) % MCV 90.4 (80-100) fL MCH 30.1 (25-34) pg MCHC 33.3 (32-36) g/dL RDW Std Deviation 40.5 (36.4-46.3) fL RDW Coeff of Nataliya 12.3 (11.5-14.5) % Plt Count 234 (130-400) K/uL MPV 11.8 H (7.4-10.4) fL Sodium (136-145) mmol/L Potassium (3.5-5.1) mmol/L Chloride (98-107) mmol/L Carbon Dioxide (21-32) mmol/L Anion Gap (3-11) BUN (6-23) mg/dl Creatinine (0.6-1.2) mg/dl Est Cr Clr Drug Dosing ml/min Est GFR ( Amer) ml/min Est GFR (Non-Af Amer) ml/min BUN/Creatinine Ratio (10-20) Glucose (70-99(Fasting)) mg/dl Calcium (8.5-10.1) mg/dl SARS-CoV-2, RNA, NAAT NEGATIVE (NEGATIVE) Blood Type A Positive Antibody Screen NEGATIVE 05/09/21 Range/Units 08:20 WBC (4.8-10.8) K/uL RBC (4.2-5.4) M/uL Hgb (12.0-16.0) g/dL Hct (37-47) % MCV (80-100) fL MCH (25-34) pg MCHC (32-36) g/dL RDW Std Deviation (36.4-46.3) fL RDW Coeff of Nataliya (11.5-14.5) % Plt Count (130-400) K/uL MPV (7.4-10.4) fL Sodium 140 (136-145) mmol/L Potassium 4.1 (3.5-5.1) mmol/L Chloride 107 (98-107) mmol/L Carbon Dioxide 23 (21-32) mmol/L Anion Gap 10 (3-11) BUN 26 H (6-23) mg/dl Creatinine 0.92 (0.6-1.2) mg/dl Est Cr Clr Drug Dosing 72.0 ml/min Est GFR ( Amer) 78.4 ml/min Est GFR (Non-Af Amer) 67.7 ml/min BUN/Creatinine Ratio 28.3 H (10-20) Glucose 193 H (70-99(Fasting)) mg/dl Calcium 8.5 (8.5-10.1) mg/dl SARS-CoV-2, RNA, NAAT (NEGATIVE) Blood Type Antibody Screen Total Time Total Time Spent Total Time Spent (In Minutes): 20 Discharge Plan Discharge Items Patient Disposition: Home - Home Health Services Reason For Visit: Left Knee Osteoarthritis Discharge Diagnosis: Left knee osteoarthritis Activity: Per Instructions section Non-emergency contact: Surgeon Call non-emergency contact if: you have any medication questions, your pain is not controlled, your pain is concerning for you, you have a fever, your temperature is above 101, your wound has increased redness and your wound has increased drainage Follow-up/Referrals: Bart Nicholas MD [Surgeon] - 05/29/21 11:15 am (APPT WITH GUERO SHEA PA-C [facility]) Sonia Ley PA-C [Primary Care Provider] - Diet: Regular Addtl Attending Provider Instructions: ACTIVITY RECOMMENDATIONS: SELF CARE INSTRUCTIONS AFTER TOTAL KNEE REPLACEMENT A. You may need to continue a physical therapy program after discharge from the hospital. There are several options available to you. Your doctor will assist you in selecting the best one for you. 1. An out-patient facility 2 to 3 times a week for therapy or home therapy. 2. Continue working on all exercises taught to you in the hospital. Your goals should be to increase bending of your knee to 90 degrees and beyond and to fully straighten your knee. B. You may progress at your own pace from walking with a walker or crutches to a cane; then to no assistive devices. C. Make walking a part of your daily routine. Be up as much as comfortable with rest periods throughout the day. Rest with leg elevation is very important. Use the ice wrap frequently for the first 3-4 weeks. D. There are no restrictions on activities. You may ride in a car, shop, participate in cinder pitman and all social activities. E. Wear the long elastic stockings (VAIBHAV hose) 20 hours a day for 2 weeks after surgery. They can be removed several times a day for laundering and for a bath. F. You may shower, no tub baths until cleared by your doctor. SPECIAL CARE INSTRUCTIONS: VERY IMPORTANT TO READ AND REVIEW A. There are a few signs you need to watch for after you are home. Call [facility] if you notice any of the followin. Increased severe knee pain. Some pain is expected especially when you exercise. 2. Increased swelling in your leg or knee; pain or swelling of the calf muscle in either lower leg. 3. Any fluid drainage from the incision. 4. Shortness of breath or chest pain. B. Please call [facility] at if you have any concerns or questions about your operation or recovery. The doctor or his nurse will return your call promptly. C. You must take antibiotics before dental work, bladder, bowel or other surgery. Your doctor will provide you with a permanent care to carry describing this precaution. IMPORTANT: * REMEMBER TO TAKE ASPIRIN, 81 MG, TWICE DAILY FOR 4 WEEKS UNLESS OTHERWISE DIRECTED. THIS IS YOUR BLOOD THINNER. * HIGH RISK PATIENTS MAY BE PRESCRIBED A STRONGER BLOOD THINNER. THIS WILL BE PROVIDED AT DISCHARGE. * CALL IF INCREASED PAIN, REDNESS, DRAINAGE OR FEVER GREATER THAT 101. * WEAR VAIBHAV HOSE 20 HOURS PER DAY FOR 2 WEEKS. This is a large suction dressing covering your incision. This will help pull any excess drainage from the wound and allow your incision to heal properly. You may shower with this if you can keep the unit outside of the shower. If any bleeding or leakage is noted please call your doctor's office. This will remain on your incision for 7 days and then should be removed. This can be done yourself or by the home nursing staff if applicable. The entire unit is disposable once removed. Once removed, keep incision clean and dry. If redness or drainage is noted, please call your surgeon. IF INCISION IS LEAKING THROUGH DRESSING, CALL THE OFFICE . FOLLOW UP VISIT: If appointment is not already scheduled: Please call [facility] to make a follow-up appointment for 2 weeks after your surgery at . Stand-Alone Forms: [facility], Opioid Pain Management, Smoking Cessation Medications and DC Order Prescriptions: New aspirin 81 mg Tablet,Delayed Release (Dr/Ec) 81 mg PO BID Qty: 60 RF: 0 acetaminophen [Tylenol Extra Strength] 500 mg Tablet 1,000 mg PO Q8 Qty: 60 RF: 0 tramadol 50 mg tablet 50 mg PO .Q4h-6h MDD 6 PRN (Reason: pain) Qty: 30 RF: 0 Continued ascorbic acid (vitamin C) [Vitamin C] 1,000 mg Tablet 1 g PO QAM RF: 0 fexofenadine 180 mg Tablet 180 mg PO QAM RF: 0 meclizine 25 mg Tablet 25 mg PO TID PRN (Reason: Dizziness) RF: 0 pantoprazole 20 mg Tablet,Delayed Release (Dr/Ec) 20 mg PO QAM PRN (Reason: severe heartburn) RF: 0 diclofenac sodium 75 mg Tablet,Delayed Release (Dr/Ec) 75 mg PO BID RF: 0 cholecalciferol (vitamin D3) [Vitamin D3] 50 mcg (2,000 unit) Tablet 50 mcg PO QAM RF: 0 famotidine 20 mg Tablet 20 mg PO QAM RF: 0 magnesium 200 mg Tablet 400 mg PO QAM RF: 0 Discontinued acetaminophen [Tylenol Ex Str Rapid Release] 500 mg Tablet 1,000 mg PO Q6H PRN (Reason: Pain) RF: 0 omega 7-xbt-[id number]-fish oil [Fish Oil] 1,200 (144-216) mg Capsule 1 cap PO BID RF: 0 azithromycin 250 mg Tablet 250 mg PO UD RF: 0 Discharge Orders: Discharge Order (Routine); Ordered 05/09/21 Ordered By: Fox Day Admission Data Admit Date/Time: 05/08/21 10:03 Attending Provider: Bart Nicholas Admit Provider: Bart Nicholas Primary Care Provider: Sonia Ley Other Providers: Albaro Banks Other Interventions: Discharge Summary Assessment (RN) Last Done: 05/09/21 12:13
== END 2021-05-09 14:53 | disposition home health service (06) ==
LOC: ASU 05:04 → 3E 05:04
DX: M17.12 Unilateral primary osteoarthritis, left knee; Z68.37 Body mass index [BMI] 37.0-37.9, adult; E66.9 Obesity, unspecified; M79.4 Hypertrophy of (infrapatellar) fat pad; Z96.651 Presence of right artificial knee joint; K21.9 Gastro-esophageal reflux disease without esophagitis; Z79.899 Other long term (current) drug therapy; Z79.1 Long term (current) use of non-steroidal anti-inflammatories (NSAID)